=== PATIENT | female | born 1995 | race Caucasian/White ===

== ENCOUNTER 2018-03-04 20:43 | Outpatient (CLI) | payer MEDICAID | END 2018-03-04 22:22 | disposition home or self-care (01) | LOC: OBT 20:43 → L-D 20:44 → OBT 22:22 | DX: O48.0 Post-term pregnancy (principal); O36.8330 Maternal care for abnormalities of the fetal heart rate or rhythm, third trimester, not applicable or unspecified; Z3A.40 40 weeks gestation of pregnancy | CPT/HCPCS: 76818 ==

== ENCOUNTER 2018-03-05 16:26 | Inpatient (IN) | payer MEDICAID ==
[2018-03-05] MEDS: LACTATED RINGER'S 1,000 ML IV (17:27)
[2018-03-05] MEDS ORDERED: IBUPROFEN 600 MG TAB PO (17:30)
[2018-03-05] MEDS ORDERED: METHYLERGONOVINE 0.2 MG INJ IM (17:30)
[2018-03-05] MEDS ORDERED: OXYTOCIN 30 UNITS/LR 500 ML IV (17:30)
[2018-03-05] MEDS ORDERED: CARBOPROST 250 MCG INJ IM (17:30)
[2018-03-05] MEDS ORDERED: OXYCODONE/ASPIRIN (4.88/325) TAB PO (17:30)
[2018-03-05 17:53] LABS: ADD MAN DIFF? NO
[2018-03-05 17:56] LABS: WHITE BLOOD COUNT 9.3 10^3/ul (4.8-10.8)
[2018-03-05 17:56] LABS: BASOPHILS % 0.4 % (0.0-2.0); EOSINOPHILS # 0.1 10^3/ul (0.0-0.5); HEMATOCRIT 35.5 % (37.0-47.0); HEMOGLOBIN 11.7 g/dl (12.0-16.0); LYMPHOCYTES # 1.4 10^3/ul (0.8-2.9); LYMPHOCYTES % 14.6 % (18.0-55.0); MEAN CORPUSCULAR HEMOGLOBIN 30.2 pg (29.0-33.0); MEAN CORPUSCULAR VOLUME 91.5 fl (72.0-104.0); MEAN PLATELET VOLUME 11.8 fl (7.4-10.4); MONOCYTE # 0.7 10^3/ul (0.3-0.9); MONOCYTES % 7.4 % (0.0-13.0); NEUTROPHIL # 7.1 10^3/ul (1.6-7.5); NEUTROPHILS % 76.1 % (30.0-74.0); PLATELET COUNT 193 10^3/UL (140-415); RED BLOOD COUNT 3.88 10^6/ul (4.20-5.40)
[2018-03-05 18:15] LABS: INR 0.88; PARTIAL THROMBOPLASTIN TIME 27.8 Sec (23.0-35.0); PT RATIO 0.9
[2018-03-05 18:53] LABS: HEPATITIS B SURFACE ANTIGEN NEGATIVE (NEGATIVE)
[2018-03-05] MEDS: CLINDAMYCIN 900 MG/D5W (PMX) 50 ML IVPB (22:54)
[2018-03-05] MEDS: MISOPROSTOL 50 MCG CAPSULE PO (23:57)
[2018-03-06] MEDS: CEPHALEXIN 500 MG CAP PO (01:14)
[2018-03-06] MEDS: LACTATED RINGER'S 1,000 ML IV ×2 (01:14→04:06)
[2018-03-06] MEDS: BUTORPHANOL 2 MG INJ IV ×2 (01:41→05:33)
[2018-03-06] MEDS: MISOPROSTOL 50 MCG CAPSULE PO ×2 (03:00→05:00)
[2018-03-06] MEDS ORDERED: LIDOCAINE 1% (MPF) 30 ML INJ (05:27)
[2018-03-06] MEDS: CLINDAMYCIN 900 MG/D5W (PMX) 50 ML IVPB (06:09)
[2018-03-06] MEDS: OXYTOCIN 30 UNITS/LR 500 ML IV ×3 (06:52→12:18)
[2018-03-06] MEDS: MISOPROSTOL 200 MCG TAB PR (06:53)
[2018-03-06] MEDS: LIDOCAINE 1% (MPF) 30 ML INJ INJ (06:55)
[2018-03-06] MEDS ORDERED: ONDANSETRON 4 MG INJ IV (08:00)
[2018-03-06] MEDS ORDERED: morphine 2 MG INJ IV (08:00)
[2018-03-06] MEDS ORDERED: DIPHENHYDRAMINE 25 MG CAP PO (08:00)
[2018-03-06] MEDS ORDERED: ZOLPIDEM 5 MG TAB PO (08:00)
[2018-03-06] MEDS ORDERED: ACETAMINOPHEN 325 MG TAB PO (08:00)
[2018-03-06] MEDS ORDERED: CARBOPROST 250 MCG INJ IM (08:00)
[2018-03-06] MEDS ORDERED: OXYTOCIN 30 UNITS/LR 500 ML IV (08:00)
[2018-03-06] MEDS ORDERED: HYDROCODONE/APAP (5/325) TAB PO (08:00)
[2018-03-06] MEDS ORDERED: MISOPROSTOL 200 MCG TAB PR (08:00)
[2018-03-06] MEDS ORDERED: NACL 0.9% 3 ML SYG IV (08:00)
[2018-03-06] MEDS: SENNA/DOCUSATE NA (8.6MG/50MG) TAB PO (09:00)
[2018-03-06] MEDS: IBUPROFEN 600 MG TAB PO ×2 (12:00→18:00)
[2018-03-06] MEDS: LANOLIN 7 GM TUBE TOP (13:12)
[2018-03-06] MEDS: WITCH HAZEL/GLYCERIN PAD PR (13:12)
[2018-03-06 22:14] LABS: RAPID PLASMA REAGIN NONREACTIVE (NR)
[2018-03-06] MEDS ORDERED: MISOPROSTOL 50 MCG CAPSULE PO (23:00)
[2018-03-06] MEDS: MINERAL OIL LIGHT 10 ML VIAL TOP (23:29)
[2018-03-07] MEDS: IBUPROFEN 600 MG TAB PO ×5 (05:46→23:55)
[2018-03-07 07:43] LABS: HEMATOCRIT 30.4 % (37.0-47.0); HEMOGLOBIN 9.7 g/dl (12.0-16.0)
[2018-03-07] MEDS: SENNA/DOCUSATE NA (8.6MG/50MG) TAB PO ×3 (09:00→23:55)
[2018-03-07] MEDS: DIPHTH/TET/ACEL PERTUSS (ADULT) 0.5 ML VIAL IM* (14:54)
[2018-03-07] MEDS: MEASLES,MUMPS,RUBELLA VACCINE INJ SC* (14:54)
[2018-03-07] MEDS: VARICELLA VACCINE LIVE/PF 1,350 UNIT/0.5 ML ML SC* (14:55)
[2018-03-08] MEDS: IBUPROFEN 600 MG TAB PO ×2 (05:27→12:18)
[2018-03-08] MEDS: SENNA/DOCUSATE NA (8.6MG/50MG) TAB PO (11:00)
[2018-03-08] MEDS: DIPHTH/TET/ACEL PERTUSS (ADULT) 0.5 ML VIAL IM* (13:28)
== END 2018-03-08 16:45 | disposition home or self-care (01) | DRG 807 ==
LOC: PP1 03-06 10:04 → L-D 16:26
PROVIDERS: Obstetrics & Gynecology
PROC: 10E0XZZ Delivery of Products of Conception, External Approach (ICD-10-PCS; principal; 2018-03-05)
PROC: 0HQ9XZZ Repair Perineum Skin, External Approach (ICD-10-PCS; 2018-03-05)
DX: O36.63X0 Maternal care for excessive fetal growth, third trimester, not applicable or unspecified (principal); Z37.0 Single live birth; O99.824 Streptococcus B carrier state complicating childbirth; O70.0 First degree perineal laceration during delivery; O62.3 Precipitate labor; Z3A.40 40 weeks gestation of pregnancy; Z98.2 Presence of cerebrospinal fluid drainage device; Z23 Encounter for immunization
CPT/HCPCS: 76815; 85014; 85018; 85025; 85610; 85730; 86592; 86850; 86900; 86901; 87340; 90686; 90715; 90716